=== PATIENT | female | born 1975 | race Caucasian/White ===

== ENCOUNTER → 2019-07-28 17:29 | Outpatient (BNVA) | payer OTHER, SELFPAY | PROVIDERS: Family Provider Family Medicine; PCP Family Medicine; Visit Provider Family Medicine | DX: R10.13 Epigastric pain (principal); K29.70 Gastritis, unspecified, without bleeding; Z87.19 Personal history of other diseases of the digestive system | CPT/HCPCS: 80053; 83690; 85025 ==

== ENCOUNTER → 2021-04-02 11:46 | Outpatient (BNVA) | payer OTHER, SELFPAY | PROVIDERS: PCP Family Medicine; Visit Provider Emergency Medicine | DX: S80.11XA Contusion of right lower leg, initial encounter (principal); M25.571 Pain in right ankle and joints of right foot; Z79.01 Long term (current) use of anticoagulants; W10.8XXA Fall (on) (from) other stairs and steps, initial encounter | CPT/HCPCS: 73590; 73610 ==

== ENCOUNTER → 2021-12-18 10:55 | Outpatient (BNVA) | payer OTHER, SELFPAY | PROVIDERS: Visit Provider Emergency Medicine | DX: R06.00 Dyspnea, unspecified (principal); R23.1 Pallor | CPT/HCPCS: 71046 ==

== ENCOUNTER 2021-12-18 19:33 | Emergency (ER) | payer OTHER, SELFPAY ==
[2021-12-18] VITALS (12 sets, daily range): BP systolic 103–133; BP diastolic 49–67; PULSE 89–144; RESP 16–29; TEMP 36.8–36.9; O2SAT 97–100; BMI 35.6
[2021-12-18 19:50] LABS: Basophils # 0.1 10^3/uL (0.0-0.1); Basophils % 0.3 %; Eosinophils # 0.1 10^3/uL (0.0-0.8); Eosinophils % 0.6 %; Lymphocytes # 2.4 10^3/uL (0.8-4.8); Lymphocytes % 13.4 %; Mean Corpuscular Hemoglobin 21.3 pg (28.0-34.0); Mean Corpuscular Volume 78.7 fl (81-99); Mean Platelet Volume 11.5 fL (7.4-10.4); Monocytes # 1.5 10^3/uL (0.2-0.9); Monocytes % 8.1 %; Neutrophils # 13.06 10^3/uL (1.8-7.7); Nucleated Red Blood Cells # 0.2 /100WBC; Nucleated Red Blood Cells % 0.8 %; Platelet Count 550 10^3/cmm (130-400); Red Blood Count 2.07 10^6/uL (4.1-5.3); Red Cell Distribution Width 19.7 % (12.1-15.1); White Blood Count 17.9 10^3/uL (4.0-10.0)
[2021-12-18] MEDS: sodium chloride 0.9% 1,000 ML 999 ML IV (19:50)
[2021-12-18 19:56] LABS: HCG, Serum Qual Negative (Negative)
[2021-12-18 19:59] LABS: Hematocrit 16.3 % (37.0-47.0); Hemoglobin 4.4 g/dL (11.5-15.3)
[2021-12-18 20:10] LABS: Alanine Aminotransferase < 5 U/L (0-33); Albumin Level 3.2 g/dL (3.5-5.2); Alkaline Phosphatase 161 U/L (35-105); Anion Gap 13.6 (5-19); Aspartate Amino Transferase 13 U/L (0-32); Blood Urea Nitrogen 27 mg/dL (6-20); C Reactive Protein 20.4 mg/L (0.0-4.9); Calcium 8.4 mg/dL (8.5-10.5); Carbon Dioxide 19 mmol/L (22-29); Chloride 99 mmol/L (98-107); Globulin 2.5 g/dL (1.3-4.6); Glomerular Filtration Rate 59.7 mL/min (90-130); Glucose 98 mg/dL (65-115); Lipase 14 U/L (13-60); Osmolality Calculated 271 mOsm/kg (285-295); Potassium 3.6 mmol/L (3.5-5.1); Sodium 128 mmol/L (136-145); Total Bilirubin 0.2 mg/dL (0.15-1.2); Total Protein 5.7 g/dL (6.6-8.7)
--- NOTE | 2021-12-18 20:21 | W.ED.NAVMDI ---
HPI - Nausea/Vomiting/Diarrhea General: Chief complaint: Nausea/Vomiting/Diarrhea Stated complaint: N/V/O, abdominal pain Time Seen by Provider: 12/18/21 19:42 Source: patient History of Present Illness: 46-year-old female who notes that she has been sick ongoing for 3 days or so. She complains of cough congestion and some shortness of breath. She has a mechanical valve, and is on warfarin therapy for this. She presented to an outside clinic today for illness. INR was checked and was greater than 8. She was encouraged to go to the hospital at that point, but instead went home. She then began to have some bright red blood with her stool which concerned her at home, so she called an ambulance. She has not had any more bleeding. She does not have a headache. She does feel short of breath. MD elicited complaint: nausea, diarrhea and abdominal pain Onset (ago): hour(s) Description of diarrhea: blood Associated nausea: Yes Associated abdominal pain: Yes Location of pain: Diffuse Radiation: diffuse Pain consistency: constant Severity: moderate Quality: cramping and aching Associated symtoms: Reports cough, fevers/chills, malaise, nausea and short of breath; Denies altered mental status, anxiety, change in vision, chest pain, diaphoresis, epistaxis, fecal incontinence or headache(s) Treatment prior to arrival: other Review of Systems Const: Reports: malaise; Denies: diaphoresis Eyes: Denies: change in vision ENMT: Reports: throat pain; Denies: epistaxis Card: Denies: chest pain Resp: Reports: dyspnea and non-productive cough GI: Reports: abdominal pain, nausea and hematochezia; Denies: vomiting or fecal incontinence Skin/Breast: Denies: rash Neuro: Denies: headache(s) Psych: Denies: anxiety PFSH ED PFSH: Medical History (Updated 12/19/21 @ 05:40 by Jesus Medina DO) Chronic anticoagulation Surgical History H/O neck surgery H/O shoulder surgery Mitral valve replaced 2009: Laparotomy for aortic arterectomy ? -Patient is not 100% sure S/P laparotomy Status post surgical pulmonary valve replacement (~2018) Family History Mother Cancer Father CAD (coronary artery disease) Social History Smoking and tobacco status: current every day smoker cigarettes Packs smoked per day: 0.5 Alcohol intake: never Desire information about alcohol rehabilitation?: No Desire information about substance/drug rehabilitation?: No History of recent travel: No Current gender identity: Female Physical Exam Const: EXAM LIMITATIONS: no altered mental status GENERAL APPEARANCE: cooperative and ill appearing; not frail appearing HENMT: COMMON NORMALS: normocephalic, atraumatic and Normal external nose present HEAD & SCALP: normocephalic and atraumatic FACE & SINUS: normal facial exam and face symmetric NOSE: Normal external nose present Eye: COMMON NORMALS: Equal, round and reactive pupils present and EOMs intact bilaterally PUPIL: Yes Equal, round and reactive pupils present Neck/C-Spine: GENERAL: Yes trachea midline Chest: CHEST: Yes Symmetrical chest wall rise Resp: COMMON NORMALS: normal respiratory effort, No retractions, No use of accessory muscles and clear to auscultation bilaterally AUSCULTATION: clear to auscultation bilaterally Cardio: COMMON NORMALS: regular rate and regular rhythm RATE: regular rate RHYTHM: regular rhythm HEART SOUNDS: Other heart sounds present (Mechanical valve) GI: COMMON NORMALS: Normal to inspection, nondistended, normoactive bowel sounds present and Soft to palpation PALPATION: Yes Soft to palpation and Yes Tenderness to palpation present (GI) (Diffuse) Extremity: COMMON NORMALS: no pedal edema Neuro: SOO COMA SCALE: document GCS findings [place] coma scale eye opening: Spontaneous [place] coma scale verbal response: Orientated [place] coma scale motor response: Obey commands [place] coma scale total score: 15 SENSORY EXAM: Yes extremities (intact) Psych: COMMON NORMALS: speech normal SPEECH: Yes normal speech Skin: COMMON NORMALS: no rashes or lesions noted GENERAL SKIN EXAM: no rashes or lesions noted Course Consultations: Consultation #1: halle Villarreal [facility] Vital Signs: Vital signs: Vital Signs Temperature 98.4 F 12/18/21 22:45 Pulse Rate 85 12/19/21 05:45 Respiratory Rate 15 12/19/21 05:45 Blood Pressure 106/62 12/19/21 05:45 Pulse Oximetry 98 12/19/21 05:45 Oxygen Delivery Me thod 12/19/21 05:45 MDM - Nausea/Vomiting/Diarrhea Medical Decision Making 46-year-old female presenting with abdominal plain, and bloody stool at home. She had an INR of 8 at an outside facility. She is normotensive. Heart rate is been under 100. She is awake and talking. White blood cell count is 18. Platelet count is 550. Hemoglobin is 4.4. BUN and creatinine are elevated at [address] is negative of the abdomen and pelvis for acute or active gastrointestinal bleeding. Her INR is 9 here. She is crossmatched for 2 units of FFP, given 5 mg of IV vitamin K, and 2 units of packed cells so far. I have spoken with our hospitalist here. The problem is we do not have gastroenterology service here if the potential need for scope arises for continued bleeding. This patient is a heart valve patient. She gets her care at [facility] for this. They have been full without beds available, and there is a significant wait for beds. I spoke with [facility] in [place]. They are willing to take this patient, but they are on ER divert, and do not want to take the patient directly to the floor with his hemoglobin. We will transfuse a second unit, check an H&H posttransfusion, and if the hemoglobin has risen appropriately and she remained stable, will transfer at that point. 12:58 AM: After first unit transfused, blood pressure 126/62, heart rate 90 sinus, respirations 17 saturations 100%. 5:38 AM: Patient still awake and appropriate. Blood pressure 106/62 heart rate 86 saturations 99% on room air respirations 20. 2 units of FFP and 2 units of packed cells have been transfused. Repeat H&H 1 hour post transfusion shows hemoglobin of only 4.8 still. This is concerning. The patient has not had any more bloody stool. No vomiting. Her INR is down to 1.37 following the vitamin K and FFP. She is crossmatched for 2 more units. We are awaiting a bed assignment at [facility]. Air transport is on standby. 0613: [facility] has a bed. Calling report. Transfusion proceeding. Air transport available. Pt stable. BP 123/60. HR 82. Sats 97%RA R 20 Lab Data : 12/19/21 05:00 12/18/21 19:40 Radiology Impressions Abdomen/Pelvis CT 12/18/21 20:22 IMPRESSION: Negative CT abdomen and pelvis. No acute pathology identified. Negative for active gastrointestinal bleeding. COMMENTS: Consistent with the [employer]'s Incidental Findings Committee white paper (J Am Evonne Radiol 2018): Any incidental renal lesion less than 1 cm or classified as too small to characterize, or any incidental cystic renal lesion characterized as simple-appearing, is likely benign. No follow-up imaging is recommended for these lesions per consensus recommendations based on imaging criteria. Chest X-Ray 12/18/21 20:22 IMPRESSION: No evidence for acute cardiopulmonary disease. Laboratory Results WBC 17.9 10^3/uL (4.0-10.0) H 12/18/21 19:40 RBC 2.07 10^6/uL (4.1-5.3) L 12/18/21 19:40 Hgb 4.7 g/dL (11.5-15.3) L* 12/19/21 05:00 Hct 16.3 % (37.0-47.0) L* 12/18/21 19:40 MCV 78.7 fl (81-99) L 12/18/21 19:40 MCH 21.3 pg (28.0-34.0) L 12/18/21 19:40 MCHC 27.0 g/dL (30.0-36.0) L 12/18/21 19:40 RDW 19.7 % (12.1-15.1) H 12/18/21 19:40 Plt Count 550 10^3/cmm (130-400) H 12/18/21 19:40 MPV 11.5 fL (7.4-10.4) H 12/18/21 19:40 Neut % (Auto) 73.0 % 12/18/21 19:40 Lymph % (Auto) 13.4 % 12/18/21 19:40 [place] % (Auto) 8.1 % 12/18/21 19:40 Eos % (Auto) 0.6 % 12/18/21 19:40 Baso % (Auto) 0.3 % 12/18/21 19:40 Neut # (Auto) 13.06 10^3/uL (1.8-7.7) H 12/18/21 19:40 Lymph # (Auto) 2.4 10^3/uL (0.8-4.8) 12/18/21 19:40 [place] # (Auto) 1.5 10^3/uL (0.2-0.9) H 12/18/21 19:40 Eos # (Auto) 0.1 10^3/uL (0.0-0.8) 12/18/21 19:40 Baso # (Auto) 0.1 10^3/uL (0.0-0.1) 12/18/21 19:40 Nucleated RBC % (auto) 0.8 % 12/18/21 19:40 Nucleated RBCs # 0.2 /100WBC 12/18/21 19:40 PT 74.60 SECONDS (12.1-14.9) H 12/18/21 20:15 INR 9.23 (0.8-1.2) H* 12/18/21 20:15 APTT 31.4 SECONDS (23.9-36.7) 12/18/21 04:35 Fibrinogen 361 mg/dL (174-498) 12/18/21 04:35 Fibrin Degrad Products Neg, <10 ug/mL (NEG) 12/18/21 04:35 D-Dimer <= 0.27 ug/mIFEU (0-0.59) 12/18/21 04:35 Sodium 128 mmol/L (136-145) L 12/18/21 19:40 Potassium 3.6 mmol/L (3.5-5.1) 12/18/21 19:40 Chloride 99 mmol/L (98-107) 12/18/21 19:40 Carbon Dioxide 19 mmol/L (22-29) L 12/18/21 19:40 Anion Gap 13.6 (5-19) 12/18/21 19:40 BUN 27 mg/dL (6-20) H 12/18/21 19:40 Creatinine 1.0 mg/dL (0.5-0.9) H 12/18/21 19:40 GFR Calculation 59.7 mL/min (90-130) L 12/18/21 19:40 Glucose 98 mg/dL (65-115) 12/18/21 19:40 Calculated Osmolality 271 mOsm/kg (285-295) L 12/18/21 19:40 Calcium 8.4 mg/dL (8.5-10.5) L 12/18/21 19:40 Total Bilirubin 0.2 mg/dL (0.15-1.2) 12/18/21 19:40 AST 13 U/L (0-32) 12/18/21 19:40 ALT < 5 U/L (0-33) 12/18/21 19:40 Alkaline Phosphatase 161 U/L (35-105) H 12/18/21 19:40 C-Reactive Protein 20.4 mg/L (0.0-4.9) H 12/18/21 19:40 Total Protein 5.7 g/dL (6.6-8.7) L 12/18/21 19:40 Albumin 3.2 g/dL (3.5-5.2) L 12/18/21 19:40 Globulin 2.5 g/dL (1.3-4.6) 12/18/21 19:40 Lipase 14 U/L (13-60) 12/18/21 19:40 HCG, Qual Negative (Negative) 12/18/21 19:40 Urine Color Yellow (Yellow) 12/18/21 20:40 Urine Appearance Clear (CLEAR) 12/18/21 20:40 Urine pH 5 (5-7) 12/18/21 20:40 Ur Specific [place] 1.010 (1.005-1.030) 12/18/21 20:40 Urine Protein Neg (Negative) 12/18/21 20:40 Urine Glucose (UA) Norm (Normal) 12/18/21 20:40 Urine Ketones Negative (Negative) 12/18/21 20:40 Urine Blood 2+ (Negative) H 12/18/21 20:40 Urine Nitrate Negative (Negative) 12/18/21 20:40 Urine Bilirubin Neg (Negative) 12/18/21 20:40 Urine Urobilinogen Neg mg/dL (Negative) 12/18/21 20:40 Ur Leukocyte Esterase Negative (Negative) 12/18/21 20:40 Urine RBC 0-4 /hpf (0-2) H 12/18/21 20:40 Urine WBC 0-4 /hpf (0-5) H 12/18/21 20:40 Ur Squamous Epith Cells 15-25 /hpf (0-5) H 12/18/21 20:40 Amorphous Sediment Not Reportable 12/18/21 20:40 Urine Bacteria None /hpf (NONE) 12/18/21 20:40 Blood Type A Positive 12/18/21 20:15 Rho(D) Type Positive 12/18/21 20:15 Antibody Screen Negative 12/18/21 20:15 Crossmatch See Detail 12/18/21 20:15 Critical Care Time Critical Care Time: Critical Care Time: Yes Total Critical Care Time: 85 Attestation: This case had a high probability of a clinically significant, sudden, or life threatening deterioration of this patient's condition which required my full and direct attention, intervention and personal management. Time is independent of any procedures performed. Discharge Plan Discharge Patient Disposition: Xfer Short-Term Hosp Clinical Impression: Acute GI bleeding, Severe anemia, Warfarin-induced coagulopathy Condition: Critical Coding Level of Care Code ED Donation Specialist for Ness Fwdenys Exam Comprehensive
--- NOTE | 2021-12-18 20:22 | XRR_ITS ---
PROCEDURE INFORMATION: Exam: XR Chest Exam date and time: 12/18/2021 9:41 PM Age: 46 years old Clinical indication: Shortness of breath; Prior surgery; Surgery date: 6+ months; Surgery type: Mechanical heart valve; Additional info: SOB TECHNIQUE: Imaging protocol: Radiologic exam of the chest. Views: 1 view. COMPARISON: CR XR chest 2V* [id number] 12/18/2021 11:03 AM FINDINGS: Lungs: Unremarkable. No consolidation. Pleural spaces: Unremarkable. No pleural effusion. No pneumothorax. Heart/Mediastinum: Unremarkable. No cardiomegaly. Bones/joints: There are posterior sternotomy changes and postoperative changes overlying the mediastinum. XR/XR chest 1V portable [id number] IMPRESSION: No evidence for acute cardiopulmonary disease.
--- NOTE | 2021-12-18 20:22 | CTR_ITS ---
PROCEDURE INFORMATION: Exam: CT Abdomen And Pelvis With Contrast Exam date and time: 12/18/2021 9:47 PM Age: 46 years old Clinical indication: Abdominal pain; Additional info: Abd pain gi bleeding TECHNIQUE: Imaging protocol: Computed tomography of the abdomen and pelvis with contrast. Radiation optimization: All CT scans at this facility use at least one of these dose optimization techniques: automated exposure control; mA and/or kV adjustment per patient size (includes targeted exams where dose is matched to clinical indication); or iterative reconstruction. Contrast material: OMNIPAQUE 350; Contrast volume: 100 ml; Contrast route: INTRAVENOUS (IV); COMPARISON: CR (CHEST, ) 12/18/2021 9:41 PM RADIATION DOSE METRICS: Total DLP (mGy-cm): 918.23 FINDINGS: Liver: Normal. No mass. Gallbladder and bile ducts: Cholecystectomy. Nondilated biliary system. Pancreas: Normal. No ductal dilation. Spleen: Normal. No splenomegaly. Adrenal glands: Normal. No mass. Kidneys and ureters: Simple left renal cortical cyst. No hydronephrosis. No renal stones. Negative for perinephric inflammation. Stomach and bowel: Negative for bowel lumen contrast extravasation. No inflammatory bowel wall thickening. No focal bowel wall mass. Negative for bowel obstruction. Negative for bowel perforation. Appendix: No evidence of appendicitis. Intraperitoneal space: Unremarkable. No free air. No significant fluid collection. Vasculature: Mild focal ectasia distal abdominal aorta measures 2.6 cm. No dissection. Lymph nodes: Unremarkable. No enlarged lymph nodes. Urinary bladder: Unremarkable as visualized. Reproductive: Follicular changes bilateral ovaries. Unremarkable uterus. Bilateral fallopian tube surgical clips are present. Bones/joints: Unremarkable. No acute fracture. Soft tissues: Unremarkable. CT/CT abdomen pelvis w con* [id number] IMPRESSION: Negative CT abdomen and pelvis. No acute pathology identified. Negative for active gastrointestinal bleeding. COMMENTS: Consistent with the [employer]'s Incidental Findings Committee white paper (J Am Evonne Radiol 2018): Any incidental renal lesion less than 1 cm or classified as too small to characterize, or any incidental cystic renal lesion characterized as simple-appearing, is likely benign. No follow-up imaging is recommended for these lesions per consensus recommendations based on imaging criteria.
[2021-12-18] MEDS: ondansetron 2 mg/ML SDV 2 mL 4 MG IVP (20:37)
[2021-12-18] MEDS: morphine 4 mg/mL SDV 1 mL IVP (20:37)
[2021-12-18] MEDS: phytonadione (ADULT) 5 MG in sodium chloride 0.9% 50 ML 151.5 MG IV (20:37)
[2021-12-18] MEDS: sodium chloride 0.9% 100 mL Bag 50 ML IV (20:37)
[2021-12-18 20:50] LABS: INR 9.23 (0.8-1.2)
[2021-12-18 21:10] LABS: Urine Appearance Clear (CLEAR); Urine Color Yellow (Yellow); pH Urine 5 (5-7)
[2021-12-18 21:11] LABS: Add Urine Microscopic? YES; Bilirubin Urine Neg (Negative); Blood Urine 2+ (Negative); Glucose Urine UA Norm (Normal); Ketones Urine Negative (Negative); Leukocyte Esterase Urine Negative (Negative); Nitrate Urine Negative (Negative); Protein Urine Neg (Negative); Urobilinogen Urine Neg (Negative)
[2021-12-18 21:12] LABS: Add Urine Culture? No; RBC Urine 0-4 /hpf (0-2); Squamous Epithelial Cell Urine 15-25 /hpf (0-5); WBC Urine 0-4 /hpf (0-5)
[2021-12-18] MEDS: iohexol 350 mg/mL 500 mL Btl (per mL) IV (21:51)
[2021-12-18] MEDS: diphenhydrAMINE 50 mg/mL SDV 1mL 25 MG IVP (21:54)
[2021-12-18] MEDS: HYDROmorphone 1 mg/mL INJ 1 mL IVP (22:58)
[2021-12-19] VITALS (29 sets, daily range): BP systolic 77–135; BP diastolic 41–74; PULSE 80–92; RESP 14–26; O2SAT 93–100
[2021-12-19] MEDS: HYDROmorphone 1 mg/mL INJ 1 mL IVP (00:58)
[2021-12-19 04:50] LABS: Hemoglobin 4.8 g/dL (11.5-15.3)
[2021-12-19 05:12] LABS: INR 1.37 (0.8-1.2)
[2021-12-19 05:13] LABS: Fibrinogen 361 mg/dL (174-498); Partial Thromboplastin Time 31.4 SECONDS (23.9-36.7)
[2021-12-19 05:13] LABS: Hemoglobin 4.7 g/dL (11.5-15.3)
[2021-12-19 05:36] LABS: D Dimer <= 0.27 ug/mIFEU (0-0.59)
== END 2021-12-19 06:56 | disposition short-term general hospital (02) ==
PROVIDERS: Internal Medicine; Emergency Provider Emergency Medicine
DX: R10.9 Unspecified abdominal pain (principal); K92.2 Gastrointestinal hemorrhage, unspecified
CPT/HCPCS: 36430; 71045; 74177; 80053; 81001; 83690; 84703; 85018; 85025; 85362; 85378; 85384; 85610; 85730; 86140; 86850; 86900; 86920; 86927; 96374; 96375; 96376; 99285; J1170; J1200; J2270; J2405; J3430; J7030; P9016; P9017; Q9967